=== PATIENT | male | born 1930 | race Caucasian/White ===

== ENCOUNTER 2018-02-06 01:49 | Emergency (ER) | payer OTHER | END 2018-02-06 03:31 | disposition left against medical advice (07) | LOC: JER 01:49 | DX: Z53.21 Procedure and treatment not carried out due to patient leaving prior to being seen by health care provider (principal) | CPT/HCPCS: 99281-25 ==

== ENCOUNTER 2019-07-20 03:36 | Inpatient (IN) | payer OTHER ==
--- NOTE | 2019-07-20 05:11 | PDOC ---
History of Present Illness - General Chief Complaint: Dysphagia Stated Complaint: DIFFICULTY SWALLOWING Time Seen by Provider: 07/20/19 04:43 History Source: Patient Exam Limitations: No Limitations - History of Present Illness Initial Comments: 07/22/19 07:25 HPI: 88M PMH NIIDM HTN HLD CAD s/p 1 stent c/o occasional hiccups and globus sensation in the chest since midnight. was concerned by the sound of the hiccups. h/o dysphagia requiring pt to carefully chew his food. Last meal was chicken and rice at 5pm, pt states he chewed carefully and did not have issues swallowing the food today. Pt states that he thought he needed to vomit but brought up a large amount of saliva. Denies chest pain, sob, n/v, abd pain, lightheadedness, dizziness, changes in vision/hearing, numbness/tingling/ weakness. Past History - Past Medical History Allergies/Adverse Reactions: Allergies Allergy/AdvReac Type Severity Reaction Status Date / Time No Known Drug Allergies Allergy Verified 07/20/19 03:53 Home Medications: Ambulatory Orders Aspirin [Ecotrin] 81 mg PO DAILY 04/15/15 Metoprolol Succinate [Toprol XL -] 50 mg PO DAILY 04/15/15 Pioglitazone HCl [Actos] 30 mg PO DAILY 04/15/15 Quinapril HCl [Accupril -] 20 mg PO DAILY 04/15/15 Sitagliptin Phosphate [Januvia] 50 mg PO DAILY 04/15/15 Anemia: Yes Cardiac Disorders: Yes (stent 2006 ASHD) COPD: (PULMONARY NODULES) Diabetes: Yes GI Disorders: Yes (COLITIS) HTN: Yes Hypercholesterolemia: Yes - Surgical History Cardiac Surgery: Yes (STENT X 1.) Orthopedic Surgery: Yes (left total knee) - Psycho Social/Smoking Cessation Hx Smoking History: Unknown if ever smoked Have you smoked in the past 12 months: No If you are a former smoker, when did you quit?: 1965 Hx Alcohol Use: No Drug/Substance Use Hx: No Substance Use Type: None Review of Systems - Review of Systems Able to Perform ROS?: Yes Comments:: 07/22/19 07:25 ROS: CONSTITUTIONAL: Denies F / C HEENT: Denies headache, lightheadedness, dizziness, changes in vision / hearing RESP: Denies SOB CARD: Denies chest pain, palpitations GI: Denies N / V / D, abdominal pain, bloody stool, inability to tolerate PO : Denies dysuria, frequency NEURO: Denies numbness, tingling, weakness Is the patient limited Portuguese proficient: No *Physical Exam - Vital Signs Last Vital Signs Temp Pulse Resp BP Pulse Ox 98.6 F 86 18 143/79 94 L 07/20/19 03:44 07/20/19 03:44 07/20/19 03:44 07/20/19 03:44 07/20/19 03:44 - Physical Exam Comments: 07/22/19 07:25 PE: GEN: Well appearing, NAD, comfortable. AAOx3 HEENT: NC/AT, EOMI, PERRLA. No facial asymmetry. Moist mucous membranes. Normal voice. Supple neck w/ FROM. CV: S1/S2, RRR, no m/r/g LUNG: CTAB, no wheezes, crackles, rales, rhonchi. GI: soft, ndnt, +BS, no guarding, no rebound. No masses. EXTREMITIES: 1+ pitting LE edema. No obvious deformities of all extremities. SKIN: warm, dry, normal turgor PSYCH: normal mood and affect NEURO: Moving all extremities well. ED Treatment Course - LABORATORY CBC & Chemistry Diagram: 07/21/19 05:10 07/21/19 05:10 - RADIOLOGY Radiology Studies Ordered: Category Date Time Status CHEST X-RAY PORTABLE* [RAD] Stat Radiology 07/20/19 05:05 Ordered Medical Decision Making - Medical Decision Making 07/20/19 05:07 MDM: 88M w/ globus sensation and hiccups. h/o dysphagia. DDx - ACS; unlikely FBO - CBC, CMP, Cardiac, Coags - EKG - CXR 07/20/19 06:58 labs reviewed trop neg x1 afib on ekg and monitor; pt and family at bedside states no known hx afib admit tele 07/20/19 07:00 Signed out to Day team Discharge - Discharge Information Problems reviewed: Yes Clinical Impression/Diagnosis: Dysphagia Qualifiers: Dysphagia type: unspecified Qualified Code(s): R13.10 - Dysphagia, unspecified Afib Qualifiers: Atrial fibrillation type: unspecified Qualified Code(s): I48.91 - Unspecified atrial fibrillation Condition: Stable - Admission Yes - Follow up/Referral - Patient Discharge Instructions - Post Discharge Activity
[2019-07-20 05:48] LABS: INR 1.12 (0.83-1.09); PROTHROMBIN TIME (PATIENT) 13.2 SEC (9.7-13.0)
[2019-07-20 06:09] LABS: ALBUMIN 2.8 g/dl (3.4-5.0); BILIRUBIN,TOTAL 0.9 mg/dL (0.2-1); CALCIUM 8.6 mg/dL (8.5-10.1); CREATININE 0.8 mg/dL (0.55-1.3); POTASSIUM 3.6 mmol/L (3.5-5.1); TOT PROT 6.6 g/dl (6.4-8.2)
--- NOTE | 2019-07-20 07:03 | PDOC ---
*Physical Exam - Vital Signs Last Vital Signs Temp Pulse Resp BP Pulse Ox 98.6 F 86 18 143/79 94 L 07/20/19 03:44 07/20/19 03:44 07/20/19 03:44 07/20/19 03:44 07/20/19 03:44 ED Treatment Course - LABORATORY CBC & Chemistry Diagram: 07/20/19 20:10 07/20/19 05:30 - ADDITIONAL ORDERS Additional order review: Laboratory Results 07/20/19 07/20/19 07/20/19 05:30 05:30 05:30 PT with INR 13.20 H INR 1.12 H PTT (Actin FS) Sodium 135 L Potassium 3.6 Chloride 92 L Carbon Dioxide 33 H Anion Gap 9 BUN 18.0 Creatinine 0.8 Est GFR (CKD-EPI)AfAm 93.75 Est GFR (CKD-EPI)NonAf 80.89 Random Glucose 228 H Calcium 8.6 Total Bilirubin 0.9 AST 34 ALT 41 Alkaline Phosphatase 109 Creatine Kinase Troponin I B-Natriuretic Peptide Cancelled 884.0 H Total Protein 6.6 Albumin 2.8 L 07/20/19 07/20/19 05:30 05:30 PT with INR INR PTT (Actin FS) 29.3 Sodium Potassium Chloride Carbon Dioxide Anion Gap BUN Creatinine Est GFR (CKD-EPI)AfAm Est GFR (CKD-EPI)NonAf Random Glucose Calcium Total Bilirubin AST ALT Alkaline Phosphatase Creatine Kinase 43 Troponin I < 0.02 B-Natriuretic Peptide Total Protein Albumin Medical Decision Making - Medical Decision Making 07/20/19 07:01 Pt received on sign out from Dr. Larios. 88M hx CAD, HLD, DM, s/p 1 stent, hiccups started midnight. Globus sensation in chest. concerned about sound of hiccups. Dysphagia to solids. R/o ACS. New onset a-fib. 1st trop negative. -admit for tele obs 07/20/19 07:16 EKG reviewed and shows atrial fibrillation, 97 bpm, left anterior fascicular block, no ST elevation/depression, QTc 497. 07/20/19 0800 D/w hospitalist team who accepts the patient for admission. Discharge - Discharge Information Problems reviewed: Yes Clinical Impression/Diagnosis: Dysphagia Qualifiers: Dysphagia type: unspecified Qualified Code(s): R13.10 - Dysphagia, unspecified Afib Qualifiers: Atrial fibrillation type: unspecified Qualified Code(s): I48.91 - Unspecified atrial fibrillation Condition: Stable - Admission Yes - Follow up/Referral - Patient Discharge Instructions - Post Discharge Activity
--- NOTE | 2019-07-20 07:17 | PDOC ---
Attending Attestation - Resident Resident Name: LariosKenneth - ED Attending Attestation I have performed the following: I have examined & evaluated the patient, The case was reviewed & discussed with the resident, I agree w/resident's findings & plan, Exceptions are as noted - HPI HPI: 07/20/19 07:20 88M pmh DM, HTN, HLD, CAD s/p stent here with palpitations, globus sensation and hiccups starting around midnight. +nausea, nbnb ememsis x1 - Physicial Exam PE: 07/20/19 07:21 Agree with exam as documented by resident - Medical Decision Making 07/20/19 07:21 Atypical chest pain presentation in a high risk patient Eval for ACS, Arrythmia, less likely infection, primary GI, gerd f/u labs, cxr, ekg ekg with new AFIB trop neg x1 admit to tele
--- NOTE | 2019-07-20 08:49 | HP ---
CHIEF COMPLAINT: persistent hiccups PCP: Dr. Connors HISTORY OF PRESENT ILLNESS: 88M w/ pmxh of DM and HTN presents in the ED for persistent hiccups over the past 3-4 days. States his hiccups have been lasting about 20 min at a time and gets it almost every hour. Last night he was only able to sleep about 2 hours as it woke him up. Admits to associated shortness of breath due to this issue. States he drank chamomile tea overnight which gave him some mild temporary symptomatic relief. Because of his hiccups, he has had poor oral intake over the past several days and has needed to chew his food more frequently because some dysphagia and feeling of food getting stuck in his throat. Denies any mabry/d , n/v, chest pain, abd pain, urinary/bowel symptoms. Per ED, an EKG was done that showed new onset afib with HR in the 80s which prompted admission to the hospital. Matthew s ER course was notable for: (1) EKG showed afib, HR 97, prolonged QT, LVH, LAD. Trop neg x1, (2) CXR neg (3) Recent Travel: [place] PAST MEDICAL HISTORY: As per HPI PAST SURGICAL HISTORY: b/l knee replacement cardiac stent x1 Social History: Smoking: Former smoker, <1 PPD x5-6 years; quit in 1952 Alcohol: social drinker, 1 glass wine/night Drugs: [place] Currently lives with and daughter as well as grandchildren At baseline, uses a walker and is independent with daily activities Allergies No Known Drug Allergies Allergy (Verified 07/20/19 03:53) HOME MEDICATIONS: Home Medications Medication Instructions Recorded Aspirin [Ecotrin] 81 mg PO DAILY 04/15/15 Metoprolol Succinate [Toprol XL -] 25 mg PO DAILY 04/15/15 Pioglitazone HCl [Actos] 30 mg PO DAILY 04/15/15 Quinapril HCl [Accupril -] 20 mg PO DAILY 04/15/15 Sitagliptin Phosphate [Januvia] 50 mg PO DAILY 04/15/15 REVIEW OF SYSTEMS CONSTITUTIONAL: Absent: fever, chills, diaphoresis, generalized weakness, malaise, loss of appetite, weight change HEENT: Absent: rhinorrhea, nasal congestion, throat pain, throat swelling, difficulty swallowing, mouth swelling, ear pain, eye pain, visual changes CARDIOVASCULAR: Absent: chest pain, syncope, palpitations, irregular heart rate, lightheadedness , peripheral edema RESPIRATORY: +hiccups Absent: cough, shortness of breath, dyspnea with exertion, orthopnea, wheezing, stridor, hemoptysis GASTROINTESTINAL: +difficulty swallowing Absent: abdominal pain, abdominal distension, nausea, vomiting, diarrhea, constipation, melena, hematochezia GENITOURINARY: Absent: dysuria, frequency, urgency, hesitancy, hematuria, flank pain, genital pain MUSCULOSKELETAL: Absent: myalgia, arthralgia, joint swelling, back pain, neck pain ENDOCRINE: Absent: unexplained weight gain, unexplained weight loss, heat intolerance, cold intolerance NEUROLOGIC: Absent: headache, focal weakness or paresthesias, dizziness, unsteady gait, seizure, mental status changes, bladder or bowel incontinence PHYSICAL EXAMINATION Vital Signs - 24 hr 07/20/19 07/20/19 03:44 07:45 Temperature 98.6 F 98.3 F Pulse Rate 86 Pulse Rate [ 90 Apical] Respiratory 18 24 H Rate Blood Pressure 143/79 Blood Pressure 139/81 [Right Arm] O2 Sat by Pulse 94 L Oximetry (%) GENERAL: Pleasant, well-appearing elderly gentleman. NAD. AAOx3. HEENT: AT/NC. EOMI. MMM. NECK: Normal range of motion, supple without lymphadenopathy, JVD, or masses. LUNGS: CTA B/L. No wheezes noted. No accessory muscle use noted. Speaks in complete sentences. HEART: RRR. Normal S1, S2. ABDOMEN: Soft, NT/ND. Normoactive BS in all 4Qs. MUSCULOSKELETAL: No peripheral edema noted. EXTREMITIES: 5/5 muscle strength noted b/l u/l extremities. NEUROLOGICAL: Cranial nerves II-XII intact. Normal speech. SKIN: Warm, dry, normal turgor, no rashes or lesions noted, normal capillary refill. Laboratory Results - last 24 hr 07/20/19 07/20/19 07/20/19 05:30 05:30 05:30 PT with INR INR PTT (Actin FS) 29.3 Sodium 135 L Potassium 3.6 Chloride 92 L Carbon Dioxide 33 H Anion Gap 9 BUN 18.0 Creatinine 0.8 Est GFR (CKD-EPI)AfAm 93.75 Est GFR (CKD-EPI)NonAf 80.89 Random Glucose 228 H Calcium 8.6 Total Bilirubin 0.9 AST 34 ALT 41 Alkaline Phosphatase 109 Creatine Kinase 43 Troponin I < 0.02 B-Natriuretic Peptide 884.0 H Total Protein 6.6 Albumin 2.8 L 07/20/19 07/20/19 05:30 05:30 PT with INR 13.20 H INR 1.12 H PTT (Actin FS) Sodium Potassium Chloride Carbon Dioxide Anion Gap BUN Creatinine Est GFR (CKD-EPI)AfAm Est GFR (CKD-EPI)NonAf Random Glucose Calcium Total Bilirubin AST ALT Alkaline Phosphatase Creatine Kinase Troponin I B-Natriuretic Peptide Cancelled Total Protein Albumin ASSESSMENT/PLAN: 88M w/ pmxh of DM and HTN presents in the ED for persistent hiccups over the past 3-4 days found to have ? new onset afib. #New Onset Afib; Stable, rate controlled with HR in 80s. -Currently on Toprol XL 50 QD, will continue -Not currently on AC. Does have hx of falls in the past. CHADS2-VASC 4. -Will start on Lovenox for now -Cardio consulted -Trops neg x1; cont to trend -Echo ordered -TSH pending -Cardiac monitoring #Hiccups; likely 2/2 GERD symptoms -Protonix 20 QD -GI consulted #HTN; Cont home meds: Toprol XL 50 QD #DM; Home home oral meds. BGM/ISS ACHS #Prophylaxis DVT: Lovenox GI: Protonix FEN -PO hydration -recheck lytes in AM -Diabetic soft diet Dispo -admit to tele obs Visit type - Emergency Visit Emergency Visit: Yes ED Registration Date: 07/20/19 Care time: The patient presented to the Emergency Department on the above date and was hospitalized for further evaluation of their emergent condition. - New Patient This patient is new to me today: Yes Date on this admission: 07/20/19 - Critical Care Critical Care patient: No ATTENDING PHYSICIAN STATEMENT I saw and evaluated the patient. I reviewed the resident's note and discussed the case with the resident. I agree with the resident's findings and plan as documented. SUBJECTIVE: OBJECTIVE: ASSESSMENT AND PLAN:
[2019-07-20 09:05] LABS: URINE APPEARANCE Clear; URINE BILIRUBIN 2+ (NEGATIVE); URINE COLOR Yellow; URINE GLUCOSE (UA) Trace (NEGATIVE); URINE KETONE 3+ (NEGATIVE); URINE LEUK ESTERASE Trace (NEGATIVE); URINE NITRITE Negative (NEGATIVE); URINE PROTEIN 2+ (NEGATIVE)
[2019-07-20] MEDS ORDERED: metoPROLOL SUCCINATE 25 MG TAB.SR.24H (FP) PO SCH (10:00)
[2019-07-20] MEDS ORDERED: PANTOPRAZOLE 20 MG TABLET (FP) PO SCH ×2 (10:00)
[2019-07-20] MEDS ORDERED: PANTOPRAZOLE 40 MG TABLET (FP) PO SCH (10:07)
--- NOTE | 2019-07-20 10:12 | CON.CARD ---
Consult Consult Specialty:: Cardiology Referred by:: Dr. Stover Reason for Consultation:: AF - History of Present Illness Chief Complaint: Difficulty swallowing and hiccups History of Present Illness: 88M with history of DM, HTN, CAD s/p PCI in 2009 presents to ER for evaluation of globus sensation and some difficulty "swallowing". He was found to be in new onset AF. Denies palps, SOB or chest pain at this time. He says he felt SOB a few days ago, but he attributes that to his hiccups which have been going on for a few days. ECG: AF at 97bpm, LVH, LAD, prolonged QT - History Source History Provided By: Patient Limitations to Obtaining History: Clinical Condition - Past Medical History Cardio/Vascular: Yes: CAD, HTN, Hyperlipdemia Gastrointestinal: No: Ascites, Cancer, Constipation, Crohn's Disease, Diverticulitis, Diverticulosis, Esophageal Varices, Gastritis, GERD, GI Bleed, Hemorrhoids, Hiatal Hernia, Inflamatory Bowel Disease, Irritable Bowel Disease, Pancreatitis, Peptic Ulcer Disease, Ulcerative Colitis, Other Hepatobiliary: No: Cirrhosis, Cholelithiasis, Cholecystitis, Choledocholithiasis , Hepatitis A, Hepatitis B, Hepatitis C, Other Renal/: No: Renal Failure, Renal Inusuff, BPH, Cancer, Hematuria, Hemodialysis , Neurogenic Bladder, Renal Calculi, UTI, Other Heme/Onc: No: Anemia, B12 Deficiency, Bleeding Disorder, Cancer, Current Chemotherapy, Current Radiation Therapy, Hemochromatosis, Hypercoaguable State, Myeloproliferative Synd, Sickle Cell Disease, Sickle Cell Trait, Thrombocytopenia, Other Infectious Disease: No: AIDS, C-Diff, Herpes Zoster, HIV, MRSA, STD's, Tuberculosis, VREF, Other Psych: No: Addictions, Anxiety, Bipolar, Depression, Panic, Psychosis, Schizophrenia, Other Endocrine: Yes: Diabetes Mellitus - Past Surgical History Past Surgical History: Yes: Stent - Alcohol/Substance Use Hx Alcohol Use: No History of Substance Use: reports: None - Smoking History Smoking history: Unknown if ever smoked Have you smoked in the past 12 months: No If you are a former smoker, when did you quit?: 1965 - Social History ADL: Independent History of Recent Travel: No Home Medications - Allergies Allergies/Adverse Reactions: Allergies Allergy/AdvReac Type Severity Reaction Status Date / Time No Known Drug Allergies Allergy Verified 07/20/19 03:53 - Home Medications Home Medications: Ambulatory Orders Aspirin [Ecotrin] 81 mg PO DAILY 04/15/15 Metoprolol Succinate [Toprol XL -] 50 mg PO DAILY 04/15/15 Pioglitazone HCl [Actos] 30 mg PO DAILY 04/15/15 Quinapril HCl [Accupril -] 20 mg PO DAILY 04/15/15 Sitagliptin Phosphate [Januvia] 50 mg PO DAILY 04/15/15 Family Medical History Family History: Unremarkable Review of Systems Findings/Remarks: see HPI - Review of Systems Constitutional: reports: No Symptoms Eyes: reports: No Symptoms HENT: reports: No Symptoms Neck: reports: No Symptoms Cardiovascular: reports: No Symptoms Respiratory: reports: No Symptoms Gastrointestinal: reports: Other (hiccups, globus sensation) Breasts: reports: No Symptoms Reported Musculoskeletal: reports: No Symptoms Integumentary: reports: No Symptoms Neurological: reports: No Symptoms Endocrine: reports: No Symptoms Hematology/Lymphatic: reports: No Symptoms Psychiatric: reports: No Symptoms - Risk Factors Known Risk Factors: Yes: Diabetes Mellitus, Hypertension Vital Signs: Vital Signs Temperature 98.3 F 07/20/19 07:45 Pulse Rate 90 07/20/19 07:45 Respiratory Rate 24 H 07/20/19 07:45 Blood Pressure 139/81 07/20/19 07:45 O2 Sat by Pulse Oximetry (%) 94 L 07/20/19 03:44 Constitutional: Yes: No Distress, Calm Eyes: Yes: Conjunctiva Clear Respiratory: Yes: CTA Bilaterally (no wheezing or rales) Gastrointestinal: Yes: Soft (NT, no rebound or guarding) Cardiovascular: Yes: Pulse Irregular JVD: No Carotid Bruit: No Heart Sounds: Yes: S1, S2 (irregularly irrregular) Edema: No Neurological: Yes: Alert, Oriented ...Motor Strength: WNL Psychiatric: Yes: WNL - Other Data Labs, Other Data: CBC, BMP 07/20/19 05:30 INR, PTT INR 1.12 (0.83-1.09) H 07/20/19 05:30 Troponin, BNP 07/20/19 07/20/19 07/20/19 05:30 05:30 05:30 Troponin I < 0.02 B-Natriuretic Peptide 884.0 H Cancelled Troponin, BNP 11/10/0707/20/19 07/20/19 05:30 05:30 05:30 Troponin I < 0.02 B-Natriuretic Peptide 884.0 H Cancelled Laboratory Tests 07/20/19 07/20/19 07/20/19 05:30 05:30 05:30 PT with INR INR PTT (Actin FS) 29.3 Sodium 135 L Potassium 3.6 Creatinine 0.8 Random Glucose 228 H Calcium 8.6 AST 34 ALT 41 Alkaline Phosphatase 109 Troponin I < 0.02 B-Natriuretic Peptide 884.0 H 07/20/19 05:30 PT with INR 13.20 H INR 1.12 H PTT (Actin FS) Sodium Potassium Creatinine Random Glucose Calcium AST ALT Alkaline Phosphatase Troponin I B-Natriuretic Peptide Echo: Pending Imaging - Results X-ray: Image Reviewed EKG: Image Reviewed Assessment/Plan IMP: New onset AF Globus sensation, possibly an AF symptom HTN DM CAD w/ remote h/o PCI REC: 1. Continue Metoprolol for rate control 2. Tele 3. Echo for EF assessment 4. Check TSH 5. Check CBC. Discussed PMD, no known contraindications to AC. [id number] score of 4 merits AC. If CBC WNL, would start Eliquis adjusted for age, weight and renal function and discontinue ASA as PCI was 9 years ago and use of NOAC + ASA in this age group elevates bleed risk with no significant benefit.
[2019-07-20] MEDS: QUINAPRIL HCL 20 MG TABLET (FP) PO SCH (10:43)
[2019-07-20] MEDS: ASPIRIN COATED 81 MG TABLET.EC PO SCH (10:43)
[2019-07-20] MEDS: PANTOPRAZOLE 40 MG TABLET (FP) PO SCH (10:52)
[2019-07-20] MEDS ORDERED: INSULIN SLIDING SCALE (NOVOLOG) 1 VIAL SQ SCH (11:00)
[2019-07-20] MEDS: ENOXAPARIN NA (PORCINE) 40 MG/0.4 ML DISP.SYRIN SQ SCH ×2 (12:07→13:00)
[2019-07-20] MEDS: INSULIN SLIDING SCALE (NOVOLOG) 1 VIAL SQ SCH ×3 (14:01→22:20)
--- NOTE | 2019-07-20 14:26 | EKG ---
Test Reason : Blood Pressure : / mmHG Vent. Rate : 097 BPM Atrial Rate : 122 BPM P-R Int : 000 ms QRS Dur : 106 ms QT Int : 392 ms P-R-T Axes : 000 -46 043 degrees QTc Int : 497 ms ATRIAL FIBRILLATION LEFT ANTERIOR FASCICULAR BLOCK MODERATE VOLTAGE CRITERIA FOR LVH, MAY BE NORMAL VARIANT PROLONGED QT ABNORMAL ECG WHEN COMPARED WITH ECG OF 27-FEB-2007 09:37, ATRIAL FIBRILLATION HAS REPLACED SINUS RHYTHM LEFT ANTERIOR FASCICULAR BLOCK IS NOW PRESENT QT HAS LENGTHENED Confirmed by MC JEAN MD ([id number]) on 07/20/2019 2:26:24 PM Referred By: Confirmed By:MC JEAN MD
--- NOTE | 2019-07-20 16:05 | PN ---
Teaching Attending Note Name of Resident: Lacie Dang ATTENDING PHYSICIAN STATEMENT I saw and evaluated the patient. I reviewed the resident's note and discussed the case with the resident. I agree with the resident's findings and plan as documented. SUBJECTIVE: Complains of intermittent hiccups with associated SOB, and feeling of abdominal fullness and difficulty swallowing. OBJECTIVE: Afebrile, hemodynamically Stable. Last Vital Signs Temp Pulse Resp BP Pulse Ox 98.3 F 90 24 H 139/81 94 L 07/20/19 07:45 07/20/19 07:45 07/20/19 07:45 07/20/19 07:45 07/20/19 03:44 HEENT - Atraumatic, Normocephalic. Heart - S1, S2, Irregular Lungs - clear to auscultation Abdomen - soft, non-tender. Bowel Sounds normal. Extremities - no calf tenderness, trace edema. Neuro - AAO x 3. Tone/Power normal all 4 extremities. Laboratory Results - last 24 hr 07/20/19 07/20/19 07/20/19 05:30 05:30 05:30 PT with INR INR PTT (Actin FS) 29.3 Sodium 135 L Potassium 3.6 Chloride 92 L Carbon Dioxide 33 H Anion Gap 9 BUN 18.0 Creatinine 0.8 Est GFR (CKD-EPI)AfAm 93.75 Est GFR (CKD-EPI)NonAf 80.89 POC Glucometer Random Glucose 228 H Calcium 8.6 Total Bilirubin 0.9 AST 34 ALT 41 Alkaline Phosphatase 109 Creatine Kinase 43 Troponin I < 0.02 B-Natriuretic Peptide 884.0 H Total Protein 6.6 Albumin 2.8 L TSH 0.48 Urine Color Urine Appearance Urine pH Ur Specific [place] Urine Protein Urine Glucose (UA) Urine Ketones Urine Blood Urine Nitrite Urine Bilirubin Urine Urobilinogen Ur Leukocyte Esterase 07/20/19 07/20/19 07/20/19 05:30 05:30 08:35 PT with INR 13.20 H INR 1.12 H PTT (Actin FS) Sodium Potassium Chloride Carbon Dioxide Anion Gap BUN Creatinine Est GFR (CKD-EPI)AfAm Est GFR (CKD-EPI)NonAf POC Glucometer Random Glucose Calcium Total Bilirubin AST ALT Alkaline Phosphatase Creatine Kinase Troponin I B-Natriuretic Peptide Cancelled Total Protein Albumin TSH Urine Color Yellow Urine Appearance Clear Urine pH 6.0 Ur Specific [place] >= 1.030 Urine Protein 2+ H Urine Glucose (UA) Trace Urine Ketones 3+ H Urine Blood Trace-lysed Urine Nitrite Negative Urine Bilirubin 2+ H Urine Urobilinogen 2.0 Ur Leukocyte Esterase Trace 07/20/19 13:58 PT with INR INR PTT (Actin FS) Sodium Potassium Chloride Carbon Dioxide Anion Gap BUN Creatinine Est GFR (CKD-EPI)AfAm Est GFR (CKD-EPI)NonAf POC Glucometer 182 Random Glucose Calcium Total Bilirubin AST ALT Alkaline Phosphatase Creatine Kinase Troponin I B-Natriuretic Peptide Total Protein Albumin TSH Urine Color Urine Appearance Urine pH Ur Specific [place] Urine Protein Urine Glucose (UA) Urine Ketones Urine Blood Urine Nitrite Urine Bilirubin Urine Urobilinogen Ur Leukocyte Esterase Current Medications Generic Name Dose Route Start Last Admin Trade Name Freq PRN Reason Stop Dose Admin Aspirin 81 mg 07/20/19 10:00 07/20/19 10:43 Ecotrin - PO 81 mg DAILY TORI Administration Enoxaparin Sodium 40 mg 07/20/19 10:00 07/20/19 13:00 Lovenox - SQ 40 mg DAILY TORI Administration Insulin Aspart 1 vial 07/20/19 11:00 07/20/19 14:01 Novolog Vial Sliding Scale - SQ 4 units ACHS TORI Administration Protocol Metoprolol Succinate 50 mg 07/20/19 11:00 07/20/19 10:51 Toprol Xl - PO 50 mg DAILY TORI Administration Pantoprazole Sodium 40 mg 07/20/19 11:00 07/20/19 10:52 Protonix - PO 40 mg DAILY TORI Administration Quinapril HCl 20 mg 07/20/19 10:00 07/20/19 10:43 Accupril - PO 20 mg DAILY TORI Administration Home Medications Medication Instructions Recorded Aspirin [Ecotrin] 81 mg PO DAILY 04/15/15 Metoprolol Succinate [Toprol XL -] 50 mg PO DAILY 04/15/15 Pioglitazone HCl [Actos] 30 mg PO DAILY 04/15/15 Quinapril HCl [Accupril -] 20 mg PO DAILY 04/15/15 Sitagliptin Phosphate [Januvia] 50 mg PO DAILY 04/15/15 ASSESSMENT/PLAN: 88 year old male with history of DM 2, HTN, CAD s/p PCI/Stent, bilateral knee replacement, presents for persistent/recurrent hiccups for 3-4 days, with associated SOB. 1. Newly recognized Atrial Fibrillation Rate controlled on Toprol XL 50mg Lovenox 1mg/kg BID pending CBC, Echo. If no intervention planned by GI, can transition to Eliquis. TSH requested. Telemonitoring. 2. Hiccups ?sec to Vagus nerve irritation Complains of dysphagia and fullness. Will consult GI for further evaluation and Ix. If no intervention planned, then can start Eliquis for Atrial fibrillation. 3. HTN - Continue Toprol XL, Quinapril. 4. DM 2 - Maintain on Novolog sliding scale. Januvia and Actos held. DVT px - Lovenox SQ GI Px - PPI
--- NOTE | 2019-07-20 16:31 | ECHO ---
Name: ELEUTERIO ARCE Exam:Adult Echocardiogram Study Date: 07/20/2019 02:45 PM Age: 88 yrs Height: 62 in Weight: 161 lb BSA: 1.7 m2 MMode/2D Measurements & Calculations IVSd: 0.83 cm Ao root diam: 2.6 cm LVIDd: 4.4 cm LVIDs: 3.3 cm LVPWd: 0.81 cm EDV(Teich): 89.9 ml LVOT diam: 2.1 cm ESV(Teich): 43.1 ml RV S Abel: 14.7 cm/sec Doppler Measurements & Calculations MV E max abel: 66.6 cm/sec Ao V2 max: 241.3 cm/sec MV A max abel: 91.3 cm/sec Ao max P.4 mmHg MV E/A: 0.73 Ao V2 mean: 187.1 cm/sec MV dec time: 0.19 sec Ao mean P.7 mmHg Ao V2 VTI: 49.7 cm SERGE(I,D): 1.0 cm2 AI P1/2t: 482.1 msec SERGE(V,D): 1.4 cm2 AI max abel: 306.1 cm/sec LV V1 max P.4 mmHg AI max P.5 mmHg LV V1 mean P.8 mmHg AI dec slope: 185.9 cm/sec2 LV V1 max: 92.7 cm/sec LV V1 mean: 63.7 cm/sec LV V1 VTI: 14.6 cm SV(LVOT): 51.6 ml TR max abel: 220.8 cm/sec TR max P.7 mmHg Med Peak E' Abel: 7.4 cm/sec Med E/e': 9.0 Lat Peak E' Abel: 13.4 cm/sec Lat E/e': 5.0 Left Ventricle Left ventricular systolic function is normal. Ejection Fraction = 55-60%. The transmitral spectral Do ppler flow pattern is suggestive of impaired LV relaxation. Right Ventricle The right ventricle is grossly normal size. The right ventricular systolic function is grossly normal . Atria The left atrium is not well visualized. Mitral Valve There is mild mitral annular calcification. There is no mitral valve stenosis. There is mild mitral regurgitation. Tricuspid Valve The tricuspid valve is normal in structure and function. There is mild tricuspid regurgitation. Right ventricular systolic pressure is normal. Aortic Valve Mild valvular aortic stenosis. Trace to mild aortic regurgitation. Pulmonic Valve The pulmonic valve is not well seen, but is grossly normal. There is no pulmonic valvular stenosis. Great Vessels The aortic root is normal size. Pericardium/Pleura There is no pericardial effusion. Interpretation Summary Left ventricular systolic function is normal. Ejection Fraction = 55-60%. The transmitral spectral Doppler flow pattern is suggestive of impaired LV relaxation. There is mild mitral annular calcification. There is mild mitral regurgitation. There is mild tricuspid regurgitation. Right ventricular systolic pressure is normal. Mild valvular aortic stenosis. Trace to mild aortic regurgitation. There is no pericardial effusion. MD Fox *Taye 07/20/2019 04:31 PM
[2019-07-20 20:37] LABS: BASO % 0.3 % (0-2.0); EOS % 0.8 % (0-4.5); HEMATOCRIT 30.9 % (35.4-49); HEMOGLOBIN 10.5 GM/dL (11.7-16.9); LYMPH % 10.7 % (8-40); MCH 30.8 pg (25.7-33.7); MCHC 33.9 g/dl (32.0-35.9); MEAN CELL VOLUME 90.9 fl (80-96); MEAN PLT VOLUME 7.3 fl (7.5-11.1); MONO % 8.5 % (3.8-10.2); NEUT % 79.7 % (42.8-82.8); PLATELET COUNT 279 K/MM3 (134-434); RDW 14.3 % (11.9-15.9); WHITE BLOOD COUNT 10.9 K/mm3 (4.0-10.0)
[2019-07-21] MEDS: ENOXAPARIN NA (PORCINE) 80 MG/0.8 ML DISP.SYRIN SQ SCH ×2 (00:15→09:11)
[2019-07-21] MEDS: INSULIN SLIDING SCALE (NOVOLOG) 1 VIAL SQ SCH ×4 (06:05→22:10)
--- NOTE | 2019-07-21 06:36 | PN ---
Progress Note, Physician Chief Complaint: denies cp, sob, palps. Still with hiccups TELE: Seems to have periods of NSR with frequent APCS AND also episodes of irregularly irregular tachycardia with NO IDENTIFIABLE P WAVES hightly suspicious for PAF History of Present Illness: Patient reports he uses a walker at home. Reports that he has had several falls at home but not recently - Current Medication List Current Medications: Active Medications Aspirin (Ecotrin -) 81 mg PO DAILY [facility] Last Admin: 07/20/19 10:43 Dose: 81 mg Enoxaparin Sodium (Lovenox -) 70 mg SQ BID [facility] Last Admin: 07/21/19 00:15 Dose: 70 mg Insulin Aspart (Novolog Vial Sliding Scale -) 1 vial SQ ACHS [facility]; Protocol Last Admin: 07/21/19 06:05 Dose: Not Given Metoprolol Succinate (Toprol Xl -) 50 mg PO DAILY [facility] Last Admin: 07/20/19 10:51 Dose: 50 mg Pantoprazole Sodium (Protonix -) 40 mg PO DAILY [facility] Last Admin: 07/20/19 10:52 Dose: 40 mg Quinapril HCl (Accupril -) 20 mg PO DAILY [facility] Last Admin: 07/20/19 10:43 Dose: 20 mg - Objective Vital Signs: Vital Signs Temperature 98.3 F 07/21/19 02:00 Pulse Rate 81 07/21/19 02:00 Respiratory Rate 18 07/21/19 02:00 Blood Pressure 113/59 L 07/21/19 02:00 O2 Sat by Pulse Oximetry (%) 96 07/20/19 22:00 Constitutional: Yes: Calm Cardiovascular: Yes: Pulse Irregular Respiratory: Yes: CTA Bilaterally Gastrointestinal: Yes: Soft Edema: No Neurological: Yes: Alert, Oriented Labs: CBC, BMP 07/20/19 20:10 07/20/19 05:30 INR, PTT INR 1.12 (0.83-1.09) H 07/20/19 05:30 Laboratory Tests 07/20/19 07/21/19 07/21/19 05:30 05:10 05:10 WBC 11.9 H Hgb 10.8 L Plt Count 316 Sodium 138 Potassium 3.6 Creatinine 0.7 Magnesium 1.9 TSH 0.48 - ....Imaging EKG: Image Reviewed Assessment/Plan IMP: PAF Globus sensation, possibly an AF symptom vs GERD Mild Aortic valve stenosis. HTN DM CAD w/ remote h/o PCI REC: 1. Continue Metoprolol for rate control; as noted above patient has NSR w/ frequent APC AND episodes of irregularly irregular tachycardia with no identifiable P waves highly suspicious for PAF. 2. Mild on echo, no intervention required at this time. 3. [id number] score of 4 merits AC. Would d/c Aspirin and start Eliquis adjusted for age, weight and renal fxn. D/C Lovenox. PT evaluation to evaluate gait and falls risk. If considered high risk for falls , then can maintain on ASA alone.
[2019-07-21 07:37] LABS: HEMOGLOBIN 10.8 GM/dL (11.7-16.9); MCH 30.6 pg (25.7-33.7); MCHC 33.8 g/dl (32.0-35.9); MEAN CELL VOLUME 90.7 fl (80-96); MEAN PLT VOLUME 7.6 fl (7.5-11.1); PLATELET COUNT 316 K/MM3 (134-434); RBC 3.53 M/mm3 (4.00-5.60); RDW 14.3 % (11.9-15.9); WHITE BLOOD COUNT 11.9 K/mm3 (4.0-10.0)
[2019-07-21 08:05] LABS: CALCIUM 8.3 mg/dL (8.5-10.1); CREATININE 0.7 mg/dL (0.55-1.3); MAGNESIUM 1.9 mg/dL (1.8-2.4); POTASSIUM 3.6 mmol/L (3.5-5.1)
[2019-07-21] MEDS ORDERED: PT OWN MED DRAWER 7, Y5N ONE (09:02)
[2019-07-21] MEDS: ASPIRIN COATED 81 MG TABLET.EC PO SCH (09:11)
[2019-07-21] MEDS: PANTOPRAZOLE 40 MG TABLET (FP) PO SCH (09:12)
[2019-07-21] MEDS: QUINAPRIL HCL 20 MG TABLET (FP) PO SCH (09:12)
--- NOTE | 2019-07-21 11:17 | PN ---
Progress Note (short form) - Note Progress Note: SUBJECTIVE: Still has the feeling of fullness and food getting stuck, associated with SOB. No CP/palpitations. OBJECTIVE: Afebrile, hemodynamically Stable. Last Vital Signs Temp Pulse Resp BP Pulse Ox 98.4 F 94 H 18 132/67 96 07/21/19 09:00 07/21/19 09:00 07/21/19 09:00 07/21/19 09:00 07/20/19 22:00 Heart - S1, S2, Irregular Lungs - clear to auscultation Abdomen - soft, non-tender. Bowel Sounds normal. Extremities - no calf tenderness, venous stasis skin changes, trace edema. Neuro - AAO x 3. Tone/Power normal all 4 extremities. Laboratory Results - last 24 hr 07/20/19 07/20/19 07/20/19 05:30 13:58 17:22 WBC RBC Hgb Hct MCV MCH MCHC RDW Plt Count MPV Absolute Neuts (auto) Neutrophils % Lymphocytes % Monocytes % Eosinophils % Basophils % Nucleated RBC % Sodium 135 L Potassium 3.6 Chloride 92 L Carbon Dioxide 33 H Anion Gap 9 BUN 18.0 Creatinine 0.8 Est GFR (CKD-EPI)AfAm 93.75 Est GFR (CKD-EPI)NonAf 80.89 POC Glucometer 182 83 Random Glucose 228 H Calcium 8.6 Phosphorus Magnesium Total Bilirubin 0.9 AST 34 ALT 41 Alkaline Phosphatase 109 B-Natriuretic Peptide 884.0 H Total Protein 6.6 Albumin 2.8 L TSH 0.48 07/20/19 07/20/19 07/21/19 20:10 21:12 05:10 WBC 10.9 H 11.9 H RBC 3.40 L 3.53 L Hgb 10.5 L 10.8 L Hct 30.9 L 32.0 L MCV 90.9 90.7 MCH 30.8 30.6 MCHC 33.9 33.8 RDW 14.3 14.3 Plt Count 279 D 316 MPV 7.3 L 7.6 Absolute Neuts (auto) 8.7 H Neutrophils % 79.7 D Lymphocytes % 10.7 D Monocytes % 8.5 Eosinophils % 0.8 D Basophils % 0.3 D Nucleated RBC % 0 Sodium Potassium Chloride Carbon Dioxide Anion Gap BUN Creatinine Est GFR (CKD-EPI)AfAm Est GFR (CKD-EPI)NonAf POC Glucometer 198 Random Glucose Calcium Phosphorus Magnesium Total Bilirubin AST ALT Alkaline Phosphatase B-Natriuretic Peptide Total Protein Albumin TSH 07/21/19 05:10 WBC RBC Hgb Hct MCV MCH MCHC RDW Plt Count MPV Absolute Neuts (auto) Neutrophils % Lymphocytes % Monocytes % Eosinophils % Basophils % Nucleated RBC % Sodium 138 Potassium 3.6 Chloride 96 L Carbon Dioxide 33 H Anion Gap 9 BUN 17.0 Creatinine 0.7 Est GFR (CKD-EPI)AfAm 99.04 Est GFR (CKD-EPI)NonAf 85.45 POC Glucometer Random Glucose 91 Calcium 8.3 L Phosphorus 3.0 Magnesium 1.9 Total Bilirubin AST ALT Alkaline Phosphatase B-Natriuretic Peptide Total Protein Albumin TSH Current Medications Generic Name Dose Route Start Last Admin Trade Name Freq PRN Reason Stop Dose Admin Apixaban 5 mg 07/21/19 12:00 Eliquis - PO BID [facility] Insulin Aspart 1 vial 07/20/19 11:00 07/21/19 06:05 Novolog Vial Sliding Scale - SQ Not Given ACHS [facility] Protocol Metoprolol Succinate 50 mg 07/20/19 11:00 07/21/19 09:12 Toprol Xl - PO 50 mg DAILY [facility] Administration Pantoprazole Sodium 40 mg 07/20/19 11:00 07/21/19 09:12 Protonix - PO 40 mg DAILY [facility] Administration Quinapril HCl 20 mg 07/20/19 10:00 07/21/19 09:12 Accupril - PO 20 mg DAILY [facility] Administration Home Medications Medication Instructions Recorded Aspirin [Ecotrin] 81 mg PO DAILY 04/15/15 Metoprolol Succinate [Toprol XL -] 50 mg PO DAILY 04/15/15 Pioglitazone HCl [Actos] 30 mg PO DAILY 04/15/15 Quinapril HCl [Accupril -] 20 mg PO DAILY 04/15/15 Sitagliptin Phosphate [Januvia] 50 mg PO DAILY 04/15/15 ASSESSMENT/PLAN: 88 year old male with history of DM 2, HTN, CAD s/p PCI/Stent, bilateral knee replacement, presents for persistent/recurrent hiccups for 3-4 days, with associated SOB. 1. Newly recognized Atrial Fibrillation Telemonitoring shows periods of irregularity consistent with PAF. Rate controlled on Toprol XL 50mg Echo - normal LV function. Eliquis started by Cardiology TSH wnl 2. Hiccups ?sec to Vagus nerve irritation/Dysphagia vs Globus sensation GI consulted for further evaluation and Ix. 3. HTN - Continue Toprol XL, Quinapril. 4. DM 2 - Maintain on Novolog sliding scale. Januvia and Actos held. DVT px - on Eliquis. GI Px - PPI Visit type - Emergency Visit Emergency Visit: Yes ED Registration Date: 07/20/19 Care time: The patient presented to the Emergency Department on the above date and was hospitalized for further evaluation of their emergent condition. - New Patient This patient is new to me today: No - Critical Care Critical Care patient: No - Discharge Referral Referred to [facility] Med [facility] No
[2019-07-21] MEDS: APIXABAN 5 MG TABLET PO SCH ×2 (12:08→22:11)
--- NOTE | 2019-07-21 15:28 | PN ---
Progress Note (short form) - Note Progress Note: GI CONSULT DICTATED - ESOPHAGRAM ORDERED WELL SPEECH SWALLOW EVALUATION SEE FULL CONSULT
--- NOTE | 2019-07-21 16:01 | CONS ---
GASTROINTESTINAL CONSULTATION DATE OF CONSULTATION: DATE OF DICTATION: 07/21/2019 HISTORY OF PRESENT ILLNESS: The patient is an 88-year-old, man with a past medical history of cardiac stents, CAD, diabetes, hypertension, bilateral knee replacements, who was admitted to the hospital with complaint of persistent hiccups for about 5 days prior to admission. He also had associated shortness of breath secondary to this. At this time, he admits of feeling difficulty swallowing both solids and liquids, however, more so solid food, and a sensation of food getting stuck in his throat; at which time, he makes himself vomit to clear his throat. He denies odynophagia. He also admits to some reflux symptoms. Denies abdominal pain, melena, hematochezia, weight loss, hematemesis. He did smoke and quit in 1952. He is a social drinker, 1 glass of wine per night. He states his last colonoscopy was approximately 8 years ago and he was advised not to have another. He has never had an upper endoscopy in the past. PAST MEDICAL AND SURGICAL HISTORY: As listed in the HPI. ALLERGIES: No known drug allergies. SOCIAL HISTORY: Former smoker. Social drinker. No drug abuse. Lives with his and daughter. HOME MEDICATIONS: Aspirin; metoprolol; Actos; Accupril; and Januvia. REVIEW OF SYSTEMS: As per the HPI. PHYSICAL EXAMINATION: Vital Signs: Temperature 98, pulse 94, blood pressure 130/67, respiratory rate18 pulse oximetry, oxygen saturation 95% on room air. General: In no acute distress. HEENT: Anicteric sclera. Cardiovascular: S1, S2. Regular rate and rhythm. Lungs: Bilaterally clear to auscultation. Abdomen: Soft. Nontender. Extremities: No edema. LABORATORIES: White blood cell count 11.9, hemoglobin 10.8 and hematocrit 32, MCV 90, platelet count 316. INR 1.1. Sodium 138, potassium 3.6, BUN 17, creatinine 0.7. Liver tests are within normal limits. Troponin also negative. He has not had any imaging, except for a chest x-ray done on July 20 which revealed no evidence of pneumonia, atelectasis or CHF. IMPRESSION: Dysphagia and dyspepsia. Differential diagnosis includes primary motility disorder; however, structural etiology cannot be excluded particularly considering he is a former smoker and continues to drink alcohol. Peptic stricture, malignancy, esophagitis will need to be excluded, as well as an infectious etiology. RECOMMENDATION: Esophagogram to rule out any structural abnormalities. Will start him on Protonix 40 mg IV daily for presumed esophagitis. He should be kept on a soft diet, for now. He should also have a Speech and Swallow evaluation. FURTHER RECOMMENDATIONS PENDING: Esophagram and swallow evaluation results. DO SUYAPA SWIFT/[id number]
--- NOTE | 2019-07-22 06:45 | PN ---
Progress Note, Physician Chief Complaint: hiccups improved. Eating No CP, SOB, palps. TELE: Again demonstrates NSR with frequent APCS as well as periods of irregularly irregular rapid tachycardia that is highly suspicious for PAF. - Current Medication List Current Medications: Active Medications Apixaban (Eliquis -) 5 mg PO BID [facility] Last Admin: 07/21/19 22:11 Dose: 5 mg Insulin Aspart (Novolog Vial Sliding Scale -) 1 vial SQ ACHS [facility]; Protocol Last Admin: 07/21/19 22:10 Dose: 4 units Metoprolol Succinate (Toprol Xl -) 50 mg PO DAILY [facility] Last Admin: 07/21/19 09:12 Dose: 50 mg Pantoprazole Sodium (Protonix -) 40 mg PO DAILY [facility] Last Admin: 07/21/19 09:12 Dose: 40 mg Quinapril HCl (Accupril -) 20 mg PO DAILY [facility] Last Admin: 07/21/19 09:12 Dose: 20 mg - Objective Vital Signs: Vital Signs Temperature 98.8 F 07/22/19 05:00 Pulse Rate 79 07/22/19 05:00 Respiratory Rate 18 07/22/19 05:00 Blood Pressure 129/56 L 07/22/19 05:00 O2 Sat by Pulse Oximetry (%) 95 07/21/19 21:00 Constitutional: Yes: No Distress, Calm Cardiovascular: Yes: Pulse Irregular Respiratory: Yes: CTA Bilaterally Gastrointestinal: Yes: Soft (NT) Edema: No Neurological: Yes: Alert, Oriented Labs: CBC, BMP 07/21/19 05:10 07/21/19 05:10 INR, PTT INR 1.12 (0.83-1.09) H 07/20/19 05:30 - ....Imaging EKG: Image Reviewed Assessment/Plan IMP: PAF Globus sensation, possibly an AF symptom vs GERD Mild Aortic valve stenosis. HTN DM CAD w/ remote h/o PCI REC: 1. Continue Metoprolol for rate control; as noted above patient has NSR w/ frequent APC AND episodes of irregularly irregular tachycardia with no identifiable P waves highly suspicious for PAF. 2. Mild on echo, no intervention required at this time. 3. [id number] score of 4 merits AC. Discontinued aspirin and started Eliquis adjusted for age, weight and renal fxn (on 07/21). PT evaluation to evaluate gait and falls risk. If considered high risk for falls , then can maintain on ASA alone.
[2019-07-22] MEDS: INSULIN SLIDING SCALE (NOVOLOG) 1 VIAL SQ SCH ×4 (06:51→21:10)
--- NOTE | 2019-07-22 06:58 | PN.GI ---
GI Progress Note Subjective: no new complaints - Objective Vital Signs: Vital Signs Temperature 98.8 F 07/22/19 05:00 Pulse Rate 79 07/22/19 05:00 Respiratory Rate 18 07/22/19 05:00 Blood Pressure 129/56 L 07/22/19 05:00 O2 Sat by Pulse Oximetry (%) 95 07/21/19 21:00 Constitutional: Well Nourished, No Distress, Calm Eyes: Yes: WNL HENT: Yes: WNL Neck: Yes: WNL, Supple Cardiovascular: Yes: WNL, Regular Rate and Rhythm Respiratory: Yes: WNL, Regular, CTA Bilaterally Gastrointestinal Inspection: Yes: WNL ...Auscultate: Yes: Normoactive Bowel Sounds Extremities: Yes: WNL Edema: No Labs: CBC, BMP 07/21/19 05:10 07/21/19 05:10 INR, PTT INR 1.12 (0.83-1.09) H 07/20/19 05:30 Problem List - Problems (1) Dysphagia Assessment/Plan: soft diet PPI f/u speech and swallow evaluation / esophagram / GI series further rec pending imaging results Code(s): R13.10 - DYSPHAGIA, UNSPECIFIED Qualifiers: Dysphagia type: unspecified Qualified Code(s): R13.10 - Dysphagia, unspecified
--- NOTE | 2019-07-22 08:45 | PN ---
Teaching Attending Note Name of Resident: Rustam Clifton ATTENDING PHYSICIAN STATEMENT I saw and evaluated the patient. I reviewed the resident's note and discussed the case with the resident. I agree with the resident's findings and plan as documented. SUBJECTIVE: Feels well generally. No CP/palpitations. Still has the feeling of fullness and food getting stuck midway down esophagus, associated with SOB. OBJECTIVE: Afebrile, hemodynamically Stable. Last Vital Signs Temp Pulse Resp BP Pulse Ox 98.8 F 79 18 129/56 L 95 07/22/19 05:00 07/22/19 05:00 07/22/19 05:00 07/22/19 05:00 07/21/19 21:00 Heart - S1, S2, Irregular Lungs - clear to auscultation Abdomen - soft, non-tender. Bowel Sounds normal. Extremities - no calf tenderness, venous stasis skin changes, trace edema. Neuro - AAO x 3. Tone/Power normal all 4 extremities. Laboratory Results - last 24 hr 07/21/19 07/21/19 07/21/19 11:29 17:21 22:07 POC Glucometer 197 119 198 07/22/19 06:32 POC Glucometer 116 Current Medications Generic Name Dose Route Start Last Admin Trade Name Freq PRN Reason Stop Dose Admin Apixaban 5 mg 07/21/19 12:00 07/21/19 22:11 Eliquis - PO 5 mg BID [facility] Administration Insulin Aspart 1 vial 07/20/19 11:00 07/22/19 06:51 Novolog Vial Sliding Scale - SQ 2 units ACHS [facility] Administration Protocol Metoprolol Succinate 50 mg 07/20/19 11:00 07/21/19 09:12 Toprol Xl - PO 50 mg DAILY [facility] Administration Pantoprazole Sodium 40 mg 07/20/19 11:00 07/21/19 09:12 Protonix - PO 40 mg DAILY [facility] Administration Quinapril HCl 20 mg 07/20/19 10:00 07/21/19 09:12 Accupril - PO 20 mg DAILY [facility] Administration Home Medications Medication Instructions Recorded Aspirin [Ecotrin] 81 mg PO DAILY 04/15/15 Metoprolol Succinate [Toprol XL -] 50 mg PO DAILY 04/15/15 Pioglitazone HCl [Actos] 30 mg PO DAILY 04/15/15 Quinapril HCl [Accupril -] 20 mg PO DAILY 04/15/15 Sitagliptin Phosphate [Januvia] 50 mg PO DAILY 04/15/15 ASSESSMENT/PLAN: 88 year old male with history of DM 2, HTN, CAD s/p PCI/Stent, bilateral knee replacement, presents for persistent/recurrent hiccups for 3-4 days, with associated SOB. 1. Newly recognized Atrial Fibrillation Telemonitoring shows periods of irregularity consistent with PAF. Rate controlled on Toprol XL 50mg Echo - normal LV function. Eliquis started by Cardiology TSH wnl PT eval for fall risk and determination of safety to continue Eliquis vs Aspirin. 2. Hiccups ?sec to Vagus nerve irritation/Dysphagia vs Globus sensation GI consulted for further evaluation and Ix - recommend Protonix for possible esophagitis, speech/swallow eval (not done on weekends) and an Esophagram (also not done on a weekend). Continued hospitalization for above studies to be done on Tuesday07/23/19 and further GI recommendations based on results. 3. HTN - Continue Toprol XL, Quinapril. 4. DM 2 - Maintain on Novolog sliding scale. Januvia and Actos held. DVT px - on Eliquis. GI Px - PPI
[2019-07-22] MEDS ORDERED: PT OWN MED DRAWER 7, Y5N ONE (08:55)
[2019-07-22] MEDS: PANTOPRAZOLE 40 MG TABLET (FP) PO SCH (09:39)
[2019-07-22] MEDS: QUINAPRIL HCL 20 MG TABLET (FP) PO SCH (09:39)
[2019-07-22] MEDS: APIXABAN 5 MG TABLET PO SCH ×2 (09:39→21:08)
--- NOTE | 2019-07-22 13:29 | PN ---
Physical Exam: SUBJECTIVE: Patient seen and examined NAEON, walks to bathroom w/o supervision Denies CP, palpitations, SOB, hiccups, sticking sensation in throat. Able to tolerate soup yesterday and breakfast this morning. OBJECTIVE: Vital Signs Period Temp Pulse Resp BP Sys/Rowan Pulse Ox Last 24 Hr 98.8 F-99.8 F 79-97 18-20 113-145/56-77 95-96 GENERAL: The patient is awake, alert. NAD HEAD: NC/AT EYES: sclera anicteric, conjunctiva clear. ENT: Ears normal, nares patent, moist mucous membranes. NECK: Trachea midline, full range of motion, supple. LUNGS: Breath sounds equal, clear to auscultation bilaterally, no wheezes, no crackles, no accessory muscle use. Breathing RA HEART: Regular rate. Irreg rhythm, S1, S2 without murmur, rub or gallop. ABDOMEN: Soft, nontender, nondistended, no guarding, no rebound. EXTREMITIES: warm, well-perfused, no edema. NEUROLOGICAL: Normal speech, gait not observed. PSYCH: Normal mood, normal affect. SKIN: Warm, dry, normal turgor, no rashes or lesions noted Laboratory Results - last 24 hr 07/21/19 07/21/19 07/22/19 17:21 22:07 06:32 POC Glucometer 119 198 116 07/22/19 11:14 POC Glucometer 177 Active Medications Generic Name Dose Route Start Last Admin Trade Name Freq PRN Reason Stop Dose Admin Apixaban 5 mg 07/21/19 12:00 07/22/19 09:39 Eliquis - PO 5 mg BID [facility] Administration Insulin Aspart 1 vial 07/20/19 11:00 07/22/19 06:51 Novolog Vial Sliding Scale - SQ 2 units ACHS [facility] Administration Protocol Metoprolol Succinate 50 mg 07/20/19 11:00 07/22/19 09:39 Toprol Xl - PO 50 mg DAILY [facility] Administration Pantoprazole Sodium 40 mg 07/20/19 11:00 07/22/19 09:39 Protonix - PO 40 mg DAILY [facility] Administration Quinapril HCl 20 mg 07/20/19 10:00 07/22/19 09:39 Accupril - PO 20 mg DAILY [facility] Administration ASSESSMENT/PLAN: 88M w/ pmxh of DM and HTN presented in the ED for persistent hiccups w/ trouble swallowing, sticking sensation in throat x3-4 days found to have ? new onset afib. HR controlled on home metoprolol. AC w/ Eliquis started. Home ASA helded. Awaiting PT eval to assess for fall risk. Awaiting esophogram to evalu dysphagia. #New Onset Afib --possibly pAF -- rate controlled with HR in 80s. > CHADS2-VASC 4 > troponin neg x1 > TSH ~0.48 > Echo(07/20/19): LVEF 55-60% w/ impaired LV relaxation, normal RVSP, mild , -cw home Toprol XL 50 QD -A/C: Eliquis 5mg BID -Cardio consulted: --h/o fall at home --cw Eliquis 5mg BID, hold home ASA --if PT evalu assesses pt to be high-risk for fall then maybe only ASA #Hiccups; likely 2/2 GERD symptoms -Protonix 40 QD #Dysphagia --resolving - GI consult: --rec S&S --rec esophagram #HTN; Cont home meds: Toprol XL 50 QD #DM; Home home oral meds. BGM/ISS ACHS #Prophylaxis DVT: Lovenox GI: Protonix FEN -PO hydration -recheck lytes in AM -Diabetic soft diet Dispo -admit to tele obs -dc plan: home Visit type - Emergency Visit Emergency Visit: No - New Patient This patient is new to me today: No - Critical Care Critical Care patient: No - Discharge Referral Referred to [facility] Med [facility].C[facility] No ATTENDING PHYSICIAN STATEMENT I saw and evaluated the patient. I reviewed the resident's note and discussed the case with the resident. I agree with the resident's findings and plan as documented. SUBJECTIVE: OBJECTIVE: ASSESSMENT AND PLAN:
[2019-07-22 15:39] VITALS: BMI 27.6
[2019-07-23] MEDS: INSULIN SLIDING SCALE (NOVOLOG) 1 VIAL SQ SCH ×2 (06:16→12:00)
[2019-07-23 07:17] LABS: BLOOD UREA NITROGEN 14.6 mg/dL (7-18); CALCIUM 8.1 mg/dL (8.5-10.1); CREATININE 0.6 mg/dL (0.55-1.3); MAGNESIUM 1.8 mg/dL (1.8-2.4); PHOSPHOROUS 2.5 mg/dL (2.5-4.9)
[2019-07-23 07:23] LABS: POTASSIUM 2.8 mmol/L (3.5-5.1)
[2019-07-23] MEDS ORDERED: POTASSIUM CHLORIDE TABS 20 MEQ TABLET.ER (FP) PO ONE (08:45)
[2019-07-23] MEDS: KCL 10 MEQ IVPB 10 MEQ/100 ML INFUS.BAG IVPB SCH ×3 (09:00→13:00)
--- NOTE | 2019-07-23 10:34 | PN ---
Progress Note, Physician Chief Complaint: hiccups History of Present Illness: no sob, orthopnea, palpit, cp, syncope - Current Medication List Current Medications: Active Medications Apixaban (Eliquis -) 5 mg PO BID [facility] Last Admin: 07/22/19 21:08 Dose: 5 mg Potassium Chloride (Potassium Chloride 10 Meq Premix Ivpb -) 10 meq in 100 mls @ 100 mls/hr IVPB Q60M [facility] Stop: 07/23/19 11:59 Last Admin: 07/23/19 10:28 Dose: 100 mls/hr Insulin Aspart (Novolog Vial Sliding Scale -) 1 vial SQ ACHS [facility]; Protocol Last Admin: 07/23/19 06:16 Dose: 2 units Magnesium Sulfate (Magnesium Sulfate) 2 gm IVPB ONCE ONE Stop: 07/23/19 12:01 Metoprolol Succinate (Toprol Xl -) 50 mg PO DAILY [facility] Last Admin: 07/22/19 09:39 Dose: 50 mg Pantoprazole Sodium (Protonix -) 40 mg PO DAILY [facility] Last Admin: 07/22/19 09:39 Dose: 40 mg Quinapril HCl (Accupril -) 20 mg PO DAILY [facility] Last Admin: 07/22/19 09:39 Dose: 20 mg - Objective Vital Signs: Vital Signs Temperature 99.6 F 07/23/19 05:44 Pulse Rate 100 H 07/23/19 05:44 Respiratory Rate 20 07/23/19 05:44 Blood Pressure 129/63 07/23/19 05:44 O2 Sat by Pulse Oximetry (%) 95 07/22/19 20:04 Constitutional: Yes: Well Nourished, No Distress, Calm Cardiovascular: Yes: Regular Rate and Rhythm, Murmur (2/6 early BHAVESH rusb). No: JVD, Gallop Respiratory: Yes: Regular, CTA Bilaterally. No: Accessory Muscle Use, Rales Extremities: No: Cold Edema: No Neurological: Yes: Alert. No: Seizure Psychiatric: No: Agitated Labs: CBC, BMP 07/21/19 05:10 07/23/19 05:35 INR, PTT INR 1.12 (0.83-1.09) H 07/20/19 05:30 Assessment/Plan Echo 08/07: nl LV/RV. mild , mild AI. no pulm HTN tele: SR with APCs IMP: PAF Globus sensation, possibly an AF symptom vs GERD Mild Aortic valve stenosis. HTN DM CAD w/ remote h/o PCI REC: 1. Continue Metoprolol for rate control; as noted above patient has NSR w/ frequent APC AND episodes of irregularly irregular tachycardia with no identifiable P waves highly suspicious for PAF. 2. Mild on echo, no intervention required at this time. 3. [id number] score of 4 merits AC. Discontinued aspirin and started Eliquis 5 bid (appropriate for age/wt/creat) 4. Await PT evaluation to evaluate gait and falls risk. If considered high risk for falls, then can maintain on ASA alone. 5. replete K to liberal targets (3.5 ok) 6. otherwise stable for d/c from CV standpoint 7. outpt f/u
--- NOTE | 2019-07-23 10:54 | EKG ---
Test Reason : Blood Pressure : / mmHG Vent. Rate : 100 BPM Atrial Rate : 092 BPM P-R Int : 000 ms QRS Dur : 112 ms QT Int : 392 ms P-R-T Axes : 000 -41 035 degrees QTc Int : 505 ms ATRIAL FIBRILLATION WITH PREMATURE VENTRICULAR OR ABERRANTLY CONDUCTED COMPLEXES LEFT AXIS DEVIATION POOR R WAVE PROGRESSION MODERATE VOLTAGE CRITERIA FOR LVH, MAY BE NORMAL VARIANT PROLONGED QT ABNORMAL ECG WHEN COMPARED WITH ECG OF 20-JUL-2019 06:39, NO SIGNIFICANT CHANGE WAS FOUND Confirmed by ALTHEA YO MD ([id number]) on 07/23/2019 10:54:25 AM Referred By: Malini HSU Confirmed By:ALTHEA YO MD
--- NOTE | 2019-07-23 11:39 | PN ---
Teaching Attending Note Name of Resident: Rustam Clifton ATTENDING PHYSICIAN STATEMENT I saw and evaluated the patient. I reviewed the resident's note and discussed the case with the resident. I agree with the resident's findings and plan as documented. SUBJECTIVE:remained asymptomatic OBJECTIVE: Vital Signs Temperature 99.4 F 07/23/19 10:00 Pulse Rate 96 H 07/23/19 10:00 Respiratory Rate 22 H 07/23/19 10:00 Blood Pressure 130/62 07/23/19 10:00 O2 Sat by Pulse Oximetry (%) 95 07/22/19 20:04 HEEENT:Mm moist no anemia, PERRLA, EOMI NECK: No JVD no Bruit CHEST: CTA B/L CVS: S1S2 IR no m/g/r ABD: No distention, non tender Bs + EXT:No edema feet [employer]ET[employer]AN APPEALS REVIEWER:AOX3 non focal CBC, BMP 07/21/19 05:10 07/23/19 05:35 Active Medications Apixaban (Eliquis -) 5 mg PO BID [facility] Last Admin: 07/22/19 21:08 Dose: 5 mg Potassium Chloride (Potassium Chloride 10 Meq Premix Ivpb -) 10 meq in 100 mls @ 100 mls/hr IVPB Q60M [facility] Stop: 07/23/19 11:59 Last Admin: 07/23/19 10:28 Dose: 100 mls/hr Insulin Aspart (Novolog Vial Sliding Scale -) 1 vial SQ ACHS [facility]; Protocol Last Admin: 07/23/19 06:16 Dose: 2 units Magnesium Sulfate (Magnesium Sulfate) 2 gm IVPB ONCE ONE Stop: 07/23/19 12:01 Metoprolol Succinate (Toprol Xl -) 50 mg PO DAILY [facility] Last Admin: 07/22/19 09:39 Dose: 50 mg Pantoprazole Sodium (Protonix -) 40 mg PO DAILY [facility] Last Admin: 07/22/19 09:39 Dose: 40 mg Quinapril HCl (Accupril -) 20 mg PO DAILY [facility] Last Admin: 07/22/19 09:39 Dose: 20 mg ASSESSMENT AND PLAN:88 yrs old man with H/O HTN admitted with sticky sensation in throat, with new onset Afib patient has H/O fall few months ago otherwise stable Gait, evaluated by cardiology and GI Consult schedule for Esophagogram and PT evaluation Problem List - Problems (1) Afib Assessment/Plan: Cont Metoprolol AC as per PT and acardiology recommendations. Problems reviewed: Yes Code(s): I48.91 - UNSPECIFIED ATRIAL FIBRILLATION Qualifiers: Atrial fibrillation type: unspecified Qualified Code(s): I48.91 - Unspecified atrial fibrillation (2) Dysphagia Assessment/Plan: F/U barium study, outr patient GI f/u for possible EGD, on PPI Problems reviewed: Yes Code(s): R13.10 - DYSPHAGIA, UNSPECIFIED Qualifiers: Dysphagia type: unspecified Qualified Code(s): R13.10 - Dysphagia, unspecified (3) Hypokalemia Assessment/Plan: repleted F/U BMP Problems reviewed: Yes Code(s): E87.6 - HYPOKALEMIA (4) HTN (hypertension) Assessment/Plan: Well contriolled Problems reviewed: Yes Code(s): I10 - ESSENTIAL (PRIMARY) HYPERTENSION
[2019-07-23] MEDS ORDERED: MAGNESIUM SULF 50% (8.12 MEQ/2 ML-1 GM VIAL) IVPB ONE (12:00)
[2019-07-23] MEDS ORDERED: PT OWN MED DRAWER 7, Y5N ONE (14:13)
--- NOTE | 2019-07-23 14:51 | CONSULT ---
Admitting History and Physical - Past Medical History Cardiovascular: Yes: CAD, HTN, Hyperlipdemia Gastrointestinal: No: Ascites, Cancer, Constipation, Crohn's Disease, Diverticulitis, Diverticulosis, Esophageal Varices, Gastritis, GERD, GI Bleed, Hemorrhoids, Hiatal Hernia, Inflamatory Bowel Disease, Irritable Bowel Disease, Pancreatitis, Peptic Ulcer Disease, Ulcerative Colitis, Other Hepatobiliary: No: Cirrhosis, Cholelithiasis, Cholecystitis, Choledocholithiasis , Hepatitis A, Hepatitis B, Hepatitis C, Other Renal/: No: Renal Failure, Renal Inusuff, BPH, Cancer, Hematuria, Hemodialysis , Neurogenic Bladder, Renal Calculi, UTI, Other Heme/Onc: No: Anemia, B12 Deficiency, Bleeding Disorder, Cancer, Current Chemotherapy, Current Radiation Therapy, Hemochromatosis, Hypercoaguable State, Myeloproliferative Synd, Sickle Cell Disease, Sickle Cell Trait, Thrombocytopenia, Other Infectious Disease: No: AIDS, C-Diff, Herpes Zoster, HIV, MRSA, STD's, Tuberculosis, VREF, Other Psych: No: Addictions, Anxiety, Bipolar, Depression, Panic, Psychosis, Schizophrenia, Other Endocrine: Yes: Diabetes Mellitus - Past Surgical History Past Surgical History: Yes: Stent - Smoking History Smoking history: Unknown if ever smoked Have you smoked in the past 12 months: No If you are a former smoker, when did you quit?: 1965 - Alcohol/Substance Use Hx Alcohol Use: No History of Substance Use: reports: None - Social History ADL: Independent History of Recent Travel: No History - Admission Reason For Visit: ATRIAL FIBRILLATION,DYSPHAGIA - Hearing Hearing: Impaired Hearing Aide: No With Patient: No Speech Evaluation - Communication Primary Language: TAMAZIGHT Communication: Yes: Within Normal Limits Oral Expression Ability: Yes: No Impairment - Speech Production Apraxia: No Able to Make Needs Known: Yes: WNL Intelligibility: Yes: WNL - Speech Characteristics Voice Loudness: Normal Voice Pitch: Yes: Normal Voice Phonatory-based Quality: Yes: Normal Speech Pattern: Normal Nasal Resonance: Normal Articulation: Yes: Precise Rate of Speech: Intact - Language/Auditory Comprehension Follows: Yes: 1 Stage Simple Commands (WFL), 2 Stage Simple Commands (WFL) Observation: Able to respond to yes/no queries: Yes, Yes/No Confusion: No, Comprehends Conversational Speech: Yes, Benefits from Slow Speech: No, Benefits from Repetiton: No, Benefits from Increased Volume of Speech: No - Language/Verbal Expression Able to Respond to Simple Queries: Yes: WNL Able to Communicate Wants and Needs: Yes: WNL Functional Communication Status: Yes: WNL Aware of Errors: Yes Attempts to Correct Errors: Yes Use of Gestures: No Written Expression: Not examined Oral Expression: WNL Reading Comprehension: Not examined Calculations: Not examined Attention: Yes: Intact - 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 Jaw Position: Closed at Rest Against Resistance Opening: Normal Against Resistance Closing: Normal Pucker Lips: Normal Smile: Normal Lips, Comment: features are within functional limits for speech and swallowing purposes. Lingual Movement: Normal Lingual Speed of Movement: Normal Lingual Movement Strgth Against Opposition: Normal Lingual Movement Characteristics: Normal Lingual Comment: features are within functional limits for speech and swallowing purposes. Soft Palate Description: Normal Color Hard Palate Description: Normal Color Gag Reflex: Strong Bite Reflex: Present Velopharyngeal Movement: Normal Laryngeal Elevation: WFL Laryngeal Movement: Able to Palpate Needs Assistance: No Rate of Intake: WFL Bolus Size: WFL Labial Seal: WFL Chewing: WFL Oral Prep Time: WFL A-P Transit: WFL Timing of Swallow: WFL Coughing/Throat Clear: No Change in Voice: No Other Findings/Remarks: Pt seen at bedside by PROFESSOR OF SPORT MANAGEMENT for swallow evaluation to r/o dysphagia. Pt is verbal A&Ox3 cooperative with a reliable yes / no response and able to follow directives without difficulty. PMHX includes DM, HTN, FEN and dysphagia??? admitted for persistent hiccups. Vocal quality is functional for the environment with speech parameters WNL. Volitional airway protection (without bolus) and swallow is WNL. Current diet: regular solids with thin liquids. Pt observed during lunch with trials of pureed, regular cut to bite sized pieces without assistance revealed, adequate bolus formation and A P transport with a timely pharyngeal swallow (1-2 second average). No change in voicing or respiration after the swallow. Thin liquid trials via cup and straw were Unremarkable for dysphagia and /or aspiration at this time. Recommendations - Speech Evaluation, Impression/Plan Impression: 88 yo male observed during during lunch consuming regular solids with thin liquids without assistance show no overt s/s of dysphagia and /or aspiration at this time. Speech and language are WNL. Alf Goals: Tolerate the least restrictive solid and liquid consistencies without s/s of penetration / aspiration. Short Term Goals: Tolerate regular solids with thin liquids at bedside without s /s of penetration and /or aspiration. - Dysphagia Impressions/Plan Swallowing Skills: WFL Dysphagia Impressions: Minimal Impairment Dysphagia Treatment Plan: Safe Rate, 1/2 tsp. at a time, OOB for meals Dysphagia Evaluation Summary: Continue po intake of regular heart healthy solids with thin liquids at tolerated. Observe standard aspiration precautions. Provide oral care before and after meal meals. Medication can be given whole with liquids. Results given verbally to lost charge card clerk and PCP via chart. PROFESSOR OF SPORT MANAGEMENT to follow up for diet tolerance. - Recommendations Diet Consistency: Regular Medication Administration: Whole with water Liquids: Thin Liquids
[2019-07-23] MEDS: PANTOPRAZOLE 40 MG TABLET (FP) PO SCH (15:37)
[2019-07-23] MEDS: QUINAPRIL HCL 20 MG TABLET (FP) PO SCH (15:37)
[2019-07-23] MEDS: APIXABAN 5 MG TABLET PO SCH (15:37)
--- NOTE | 2019-07-23 16:46 | PN ---
Physical Exam: SUBJECTIVE: Patient seen and examined NAEON Denies CP, palpitations. Has loose stool. Tolerated dinner w/o issues. NPO for esophagram OBJECTIVE: Vital Signs Period Temp Pulse Resp BP Sys/Rowan Pulse Ox Last 24 Hr 98.2 F-99.9 F 87-110 18-22 113-140/61-79 95-97 GENERAL: The patient is awake, alert. NAD HEAD: NC/AT EYES: sclera anicteric, conjunctiva clear. ENT: Ears normal, nares patent, moist mucous membranes. NECK: Trachea midline, full range of motion, supple. LUNGS: Breath sounds equal, clear to auscultation bilaterally, no wheezes, no crackles, no accessory muscle use. Breathing RA HEART: Regular rate. Irreg rhythm, S1, S2 without murmur, rub or gallop. ABDOMEN: Soft, nontender, nondistended, no guarding, no rebound. EXTREMITIES: warm, well-perfused, no edema. NEUROLOGICAL: Normal speech, gait not observed. PSYCH: Normal mood, normal affect. SKIN: Warm, dry, normal turgor, no rashes or lesions noted Laboratory Results - last 24 hr 07/22/19 07/22/19 07/23/19 17:05 21:09 05:35 Sodium 135 L Potassium 2.8 L* Chloride 95 L Carbon Dioxide 29 Anion Gap 11 BUN 14.6 Creatinine 0.6 Est GFR (CKD-EPI)AfAm 105.52 Est GFR (CKD-EPI)NonAf 91.04 POC Glucometer 96 188 Random Glucose 131 H Calcium 8.1 L Phosphorus 2.5 Magnesium 1.8 07/23/19 05:56 Sodium Potassium Chloride Carbon Dioxide Anion Gap BUN Creatinine Est GFR (CKD-EPI)AfAm Est GFR (CKD-EPI)NonAf POC Glucometer 132 Random Glucose Calcium Phosphorus Magnesium Active Medications Generic Name Dose Route Start Last Admin Trade Name Freq PRN Reason Stop Dose Admin Apixaban 5 mg 07/21/19 12:00 07/23/19 15:37 Eliquis - PO 5 mg BID [facility]ORI Administration Insulin Aspart 1 vial 07/20/19 11:00 07/23/19 12:00 Novolog Vial Sliding Scale - SQ Not Given ACHS [facility]I Protocol Metoprolol Succinate 50 mg 07/20/19 11:00 07/23/19 15:38 Toprol Xl - PO 50 mg DAILY [facility]I Administration Pantoprazole Sodium 40 mg 07/20/19 11:00 07/23/19 15:37 Protonix - PO 40 mg DAILY [facility] Administration Quinapril HCl 20 mg 07/20/19 10:00 07/23/19 15:37 Accupril - PO 20 mg DAILY [facility] Administration ASSESSMENT/PLAN: 88M w/ pmxh of DM and HTN presented in the ED for persistent hiccups w/ trouble swallowing, sticking sensation in throat x3-4 days found to have ? new onset afib. HR controlled on home metoprolol. AC w/ Eliquis started. Home ASA helded. PT eval showing pt able to ambulated 200ft, steady, w/ walker. Esophogram neg for stenosis or dilation. Patient deemed stable for discharge pending repletion of hypokalemia. #New Onset Afib --possibly pAF -- rate controlled with HR in 80s. > CHADS2-VASC 4 > troponin neg x1 > TSH ~0.48 > Echo(07/20/19): LVEF 55-60% w/ impaired LV relaxation, normal RVSP, mild , -cw home Toprol XL 50 QD -A/C: Eliquis 5mg BID -Cardio consulted: --h/o fall at home --cw Eliquis 5mg BID, hold home ASA --if PT evalu assesses pt to be high-risk for fall then maybe only ASA --PT walked steady 200ft w/ walker #Hiccups; likely 2/2 GERD symptoms -Protonix 40 QD #Dysphagia --resolving - GI consult: --rec S&S --heart healthy diet --rec esophagram --normal #HTN; Cont home meds: Toprol XL 50 QD #DM; Home home oral meds. BGM/ISS ACHS #Prophylaxis DVT: Lovenox GI: Protonix FEN -PO hydration -replete lytes PRN -Diabetic soft diet Dispo -admit to tele obs -dc plan: home Visit type - Emergency Visit Emergency Visit: No - New Patient This patient is new to me today: No - Critical Care Critical Care patient: No ATTENDING PHYSICIAN STATEMENT I saw and evaluated the patient. I reviewed the resident's note and discussed the case with the resident. I agree with the resident's findings and plan as documented. SUBJECTIVE: OBJECTIVE: ASSESSMENT AND PLAN:
[2019-07-23] MEDS ORDERED: POTASSIUM CHLORIDE ORAL LIQUID 20 MEQ/15 ML PO ONE (16:51)
[2019-07-23] MEDS ORDERED: POTASSIUM CHLORIDE TABS 20 MEQ TABLET.ER (FP) PO PRN (16:51)
[2019-07-23 17:26] VITALS: BP 112/47; PULSE 96; TEMP 99.4
[2019-07-23 17:29] LABS: CREATININE 0.7 mg/dL (0.55-1.3); POTASSIUM 3.5 mmol/L (3.5-5.1)
--- NOTE | 2019-07-26 07:27 | DS ---
Physical Exam: SUBJECTIVE: Patient seen and examined OBJECTIVE: PHYSICAL EXAM GENERAL: The patient is awake, alert. NAD HEAD: NC/AT EYES: sclera anicteric, conjunctiva clear. ENT: Ears normal, nares patent, moist mucous membranes. NECK: Trachea midline, full range of motion, supple. LUNGS: Breath sounds equal, clear to auscultation bilaterally, no wheezes, no crackles, no accessory muscle use. Breathing RA HEART: Regular rate. Irreg rhythm, S1, S2 without murmur, rub or gallop. ABDOMEN: Soft, nontender, nondistended, no guarding, no rebound. EXTREMITIES: warm, well-perfused, no edema. NEUROLOGICAL: Normal speech, gait not observed. PSYCH: Normal mood, normal affect. SKIN: Warm, dry, normal turgor, no rashes or lesions noted LABS HOSPITAL COURSE: 88M w/ pmxh of DM and HTN presented in the ED for persistent hiccups w/ trouble swallowing, sticking sensation in throat x3-4 days found to have new onset afib. HR controlled on home metoprolol. Cardio rec AC w/ Eliquis, started during admission. Home ASA helded. PT eval showing pt able to ambulated 200ft, steady, w/ walker. Esophogram neg for stenosis or dilation. Patient deemed stable for discharge. Repleted hypoK prior to discharge home. Date of Admission:07/23/19 Date of Discharge: 07/26/19 Minutes to complete discharge: 20 Discharge Summary Problems reviewed: Yes Reason For Visit: ATRIAL FIBRILLATION,DYSPHAGIA Condition: Stable - Instructions Diet, Activity, Other Instructions: You were evaluated in the hospital in for hiccups and trouble swallowing. Testing revealed that you have an irregular heart rhythm called Atrial Fibrillation. Your heart rate was controlled with your previously prescribed Metoprolol Succinate. Cardiology was consulted and they recommended Eliquis as a blood thinner. Physical therapy evaluated and determined that you had a steady gait. Gastroenterology was consulted and recommended a swallow study. There were no irregular results. Medications: - NEW medications: --Apixaban[ELIQUIS] 5mg, twice a day ---this medication will reduce your risk of getting a clot in your heart ---note: Eliquis increases your risk of bleeding --Pantoprazole[PROTONIX] 40mg, once a day for 14 days ---this medication will reduce the acidity in your stomach, reduce gastric reflux, reduce hiccups - continue with your previously prescribed medications Additional instructions: - diet: heart-healthy diet(low sodium, low sugar, high fiber) - activity: resume walking with walker, avoid falls - if you experience falls, you should be evaluated by a doctor as your are at increased risk of bleeding. You may need a CT scan after a fall Please follow-up with the physicians below: - Cardiology(Taye): to discuss your atrial fibrillation, and need for additional future testing - Gastroenterology(Domonique): to discuss your swallow study, and any other swallowing issues - PCP: to discuss your recent hospitalization, repeat bloodwork(check eletrolytes) within 3-5 days Please seek immediate medical evaluation or go to the Emergency Department if you experience: - severe chest pain, palpitations, trouble breathing, shortness of breath - fall to the ground, head strike, confusion Referrals: Ruddy Kothari MD [Staff Physician] - Sterilng Briggs MD [Primary Care Provider] - Disposition: HOME - Home Medications Comprehensive Discharge Medication List: Ambulatory Orders Aspirin [Ecotrin] 81 mg PO DAILY 04/15/15 Metoprolol Succinate [Toprol XL -] 50 mg PO DAILY 04/15/15 Pioglitazone HCl [Actos] 30 mg PO DAILY 04/15/15 Quinapril HCl [Accupril -] 20 mg PO DAILY 04/15/15 Sitagliptin Phosphate [Januvia] 50 mg PO DAILY 04/15/15 Apixaban [Eliquis -] 5 mg PO BID #60 tablet 07/23/19 Pantoprazole Sodium [Protonix -] 40 mg PO DAILY #14 tablet.ec 07/23/19 This patient is new to me today: No Emergency Visit: No Critical Care patient: No - Discharge Referral Referred to [facility] Med P.C.: No ATTENDING PHYSICIAN STATEMENT I saw and evaluated the patient. I reviewed the resident's note and discussed the case with the resident. I agree with the resident's findings and plan as documented. SUBJECTIVE: OBJECTIVE: ASSESSMENT AND PLAN:
== END 2019-07-23 18:56 | disposition home or self-care (01) | DRG 310 ==
LOC: JER 03:36 → JERBED 06:57 → J4W 17:17 → OBSVTOIN 07-23 10:50
PROVIDERS: ATTEND Internal Medicine
DX: I48.0 Paroxysmal atrial fibrillation (principal); I10 Essential (primary) hypertension; R06.6 Hiccough; R94.31 Abnormal electrocardiogram [ECG] [EKG]; Z96.653 Presence of artificial knee joint, bilateral; E11.9 Type 2 diabetes mellitus without complications; I25.10 Atherosclerotic heart disease of native coronary artery without angina pectoris; E78.5 Hyperlipidemia, unspecified; I35.0 Nonrheumatic aortic (valve) stenosis; R13.10 Dysphagia, unspecified; E87.6 Hypokalemia; K21.9 Gastro-esophageal reflux disease without esophagitis; Z95.5 Presence of coronary angioplasty implant and graft
CPT/HCPCS: 36415; 71045-TC-FY; 74220-TC-FY; 80048; 80053; 81003; 82550; 82962; 83735; 83880; 84100; 84443; 84484; 85025; 85027; 85610; 85730; 93005; 93010; 93306-TC; 97116-GP; 97161-GP; 99285-25; G0378